=== PATIENT | male | born 1960 | race Caucasian/White ===

== ENCOUNTER 2020-11-23 09:24 | Emergency (ER) | payer BC ==
[~2020-11-23] VITALS: Ht 180.3 cm; Wt 106.6 kg
[2020-11-23 09:33] VITALS: BP 179/62
[2020-11-23 09:40] VITALS: BP 158/70
[2020-11-23] MEDS ORDERED: TRIPLE ANTIBIOTIC OINTMENT TP ONE (09:49)
[2020-11-23] MEDS ORDERED: NORCO 7.5MG PO STA (09:49)
[2020-11-23] MEDS ORDERED: NORCO 7.5MG PO ONE (09:50)
[2020-11-23] MEDS ORDERED: ADACEL VIAL IM ONE ×2 (10:00→10:04)
--- NOTE | 2020-11-23 10:02 | NUR ---
WOUND CARE DR. DIAZ AT BEDSIDE FOR WOUND CARE. DRESSING APPLIED AFTER WOUND CARE WITH INSTRUCTIONS TO PATIENT GIVE BY DR. DIAZ ON HOW TO CARE FOR WOUND AT HOME. PATIENT VERBALIZED UNDERSTANDING AND DENIES FURTHER QUESTIONS. WOUND SUPPLIES GIVEN TO PATIENT AT PATIENT'S REQUEST.
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
[2020-11-23 10:10] VITALS: BP 152/73
== END 2020-11-23 10:10 | disposition home or self-care (01) ==
LOC: ER 09:24
DX: T25.222A Burn of second degree of left foot, initial encounter (principal); I10 Essential (primary) hypertension; E11.9 Type 2 diabetes mellitus without complications; Z88.0 Allergy status to penicillin; Z88.2 Allergy status to sulfonamides; X10.0XXA Contact with hot drinks, initial encounter; Y93.89 Activity, other specified; Y92.098 Other place in other non-institutional residence as the place of occurrence of the external cause; Y99.8 Other external cause status
CPT/HCPCS: 90471; 90715; 99284; 16020

== ENCOUNTER 2020-11-25 21:12 | Emergency (ER) | payer BC ==
[~2020-11-25] VITALS: Ht 185.4 cm; Wt 104.3 kg
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
[2020-11-25 21:31] VITALS: BP 171/83
[2020-11-25] MEDS ORDERED: ROCEPHIN ONE (21:39)
[2020-11-25] MEDS ORDERED: MORPHINE SULFATE IM STA (21:39)
[2020-11-25] MEDS ORDERED: CLEOCIN ONE (21:40)
[2020-11-25] MEDS ORDERED: MORPHINE SULFATE ONE (21:40)
[2020-11-25] MEDS ORDERED: NORCO 7.5MG PO ONE (21:45)
--- NOTE | 2020-11-25 21:50 | NUR ---
MEDICATIONS GIVEN ORDERED, PT OSWALDO WELL. ABX OINTMENT AND LOOSE NON-ADHERENT DRESSING APPLIED.
[2020-11-25] MEDS: ROCEPHIN IM STA (21:53)
[2020-11-25] MEDS: CLEOCIN PO STA (21:53)
[2020-11-25] MEDS: NORCO 7.5MG PO STA (21:53)
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
[2020-11-25] MEDS ORDERED: TRIPLE ANTIBIOTIC OINTMENT TP ONE (22:07)
--- NOTE | 2020-11-25 22:18 | NUR ---
DISCHARGE DC INSTRUCTIONS, PRESCRIPTIONS, WOUND CARE INSTRUCTIONS GIVEN TO PT/SPOUSE, EDUCATION PROVIDED ON WOUND CARE. PT/SPOUSE VERBALIZED UNDERSTANDING. PT AMBULATED TO POV W/OUT DIFFICULTY.
== END 2020-11-25 22:18 | disposition home or self-care (01) ==
LOC: ER 21:12
DX: T25.222A Burn of second degree of left foot, initial encounter (principal); L03.116 Cellulitis of left lower limb; I10 Essential (primary) hypertension; E11.9 Type 2 diabetes mellitus without complications; I25.2 Old myocardial infarction; Z88.0 Allergy status to penicillin; Z88.2 Allergy status to sulfonamides; Y93.89 Activity, other specified; Y92.89 Other specified places as the place of occurrence of the external cause; Y99.8 Other external cause status
CPT/HCPCS: 96372; 99284; J0696; J2270